=== PATIENT | male | born 1970 | race American Indian/Alaskan Native ===

== ENCOUNTER 2018-05-12 21:03 | Emergency (ER) | payer MEDICARE ==
[2018-05-12] MEDS ORDERED: MORPHINE IV ONE (22:08)
[2018-05-12] MEDS ORDERED: BOOSTRIX IM ONE (22:08)
[2018-05-12] MEDS ORDERED: ZOFRAN IV ONE (22:08)
[2018-05-12 22:28] LABS: Basophils % (Auto) 0.4 % (0.0-1.8); Eosinophils % (Auto) 0.4 % (0.0-4.3); Hematocrit 40.6 % (35.5-45.6); Hemoglobin 14.4 gm/dl (11.8-15.2); Lymphocytes % (Auto) 34.3 % (13.4-35.0); Mean Corpuscular HGB Conc 36 % (32-34); Mean Corpuscular Volume 104 fl (84-94); Monocytes % (Auto) 4.2 % (0.0-7.3); Platelet Count 214 K/mm3 (140-440); Red Blood Count 3.92 M/mm3 (3.65-5.03); Red Cell Distribution Width 14.5 % (13.2-15.2)
[2018-05-12 22:32] LABS: Lymphocytes # (Auto) 2.8 K/mm3 (1.2-5.4); Monocytes # (Auto) 0.3 K/mm3 (0.0-0.8)
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
[2018-05-12 22:36] LABS: INR 1.04 (0.87-1.13)
[2018-05-12 22:37] LABS: Partial Thromboplastin Time 35.4 Sec. (24.2-36.6)
[2018-05-12 23:10] LABS: Alanine Aminotransferase 65 units/L (7-56); Albumin 4.4 g/dL (3.9-5); BUN/Creatinine Ratio 8; Blood Urea Nitrogen 8 mg/dL (9-20); Calcium 9.4 mg/dL (8.4-10.2); Hemolysis Index 8
[2018-05-12 23:24] VITALS: BP 120/76
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
== END 2018-05-12 23:01 | disposition left against medical advice (07) ==
LOC: ED 21:03
DX: S31.829A Unspecified open wound of left buttock, initial encounter (principal); S31.819A Unspecified open wound of right buttock, initial encounter; F17.200 Nicotine dependence, unspecified, uncomplicated; F12.10 Cannabis abuse, uncomplicated; W34.09XA Accidental discharge from other specified firearms, initial encounter; Y93.89 Activity, other specified; Y92.89 Other specified places as the place of occurrence of the external cause; Y99.8 Other external cause status
CPT/HCPCS: 36415; 72170; 80053; 85025; 85610; 85730; 86850; 86900; 86901; 90471; 90715; 96374; 96375; 99284; J2270; J2405